=== PATIENT | male | born 1950 | race Caucasian/White ===

== ENCOUNTER 2023-07-22 20:07 | Inpatient (IN) | payer OTHER ==
[2023-07-22 21:54] LABS: BASO % 0.2 % (0-2.0); EOS % 0.1 % (0-4.5); HEMATOCRIT 47.5 % (35.4-49); LYMPH % 12.7 % (8-40); MCH 30.4 pg (25.7-33.7); MCHC 33.8 g/dl (32.0-35.9); MEAN CELL VOLUME 89.9 fl (80-96); MEAN PLT VOLUME 6.9 fl (7.5-11.1); MONO % 18.7 % (3.8-10.2); NEUT % 68.3 % (42.8-82.8); PLATELET COUNT 138 10^3/uL (134-434); RBC 5.29 M/mm3 (4.00-5.60); RDW 13.9 % (11.9-15.9); WHITE BLOOD COUNT 7.9 K/mm3 (4.0-10.0)
[2023-07-22 22:06] LABS: ACTIVATED PTT 29.2 SECONDS (25.2-36.5); INR 1.12 (0.83-1.09)
[2023-07-22] MEDS ORDERED: SODIUM CHLORIDE 0.9% 500 ML INFUS.BAG IV ONE (23:03)
[2023-07-22] MEDS ORDERED: ASPIRIN 81 MG CHEWABLE TABLETS PO ONE (23:30)
[2023-07-22 23:38] LABS: POTASSIUM 4.5 mmol/L (3.5-5.1)
[2023-07-22 23:40] LABS: ALBUMIN 3.7 g/dl (3.4-5.0); BLOOD UREA NITROGEN 12.5 mg/dL (7-18); CALCIUM 8.8 mg/dL (8.5-10.1); MAGNESIUM 2.1 mg/dL (1.8-2.4)
[2023-07-22 23:43] LABS: CREATININE 1.3 mg/dL (0.55-1.3)
[2023-07-22 23:45] LABS: BILIRUBIN,TOTAL 0.9 mg/dL (0.2-1); TOT PROT 7.7 g/dl (6.4-8.2)
[2023-07-22 23:49] LABS: N-TERMINAL BNP 2867.2 pg/ml (5-125)
[2023-07-22] MEDS ORDERED: ASPIRIN 81 MG CHEWABLE TABLETS ONE (23:51)
[2023-07-22] MEDS ORDERED: ACETAMINOPHEN INJECTION 100 ML IVPB ONE (23:51)
[2023-07-22] MEDS ORDERED: ACETAMINOPHEN 1000 MG/100 ML BAG IVPB ONE (23:51)
[2023-07-23 00:06] LABS: EPI CELLS 1 /uL (0-25.1); HYALINE CASTS 2 /uL (0-3.1); URINE APPEARANCE CLEAR; URINE BACTERIA 50 /uL (0-1359); URINE BILIRUBIN NEGATIVE (NEGATIVE); URINE COLOR YELLOW; URINE GLUCOSE (UA) NEGATIVE (NEGATIVE); URINE KETONE NEGATIVE (NEGATIVE); URINE LEUK ESTERASE 2+ (NEGATIVE); URINE NITRITE NEGATIVE (NEGATIVE); URINE PROTEIN 1+ (NEGATIVE); URINE RBC 27 /uL (0-23.9); URINE WBC 564 /uL (0-25.8)
[2023-07-23] MEDS ORDERED: CEFTRIAXONE 1 GM in DEXTROSE 5%-WATER - 100 ML IVPB ONE (00:29)
[2023-07-23] MEDS ORDERED: CEFTRIAXONE 1 GM/50 ML BAG ONE (01:03)
[2023-07-23] MEDS: CEFTRIAXONE 1 GM in DEXTROSE 5%-WATER - 50 ML IVPB SCH ×2 (02:00→09:15)
[2023-07-23] MEDS ORDERED: metoPROLOL SUCCINATE 25 MG TAB.SR.24H (FP) PO ONE ×2 (02:28→08:49)
[2023-07-23] MEDS ORDERED: LOSARTAN POTASSIUM 50 MG TABLET ONE (02:28)
[2023-07-23] MEDS: METOPROLOL TARTRATE 25 MG TABLET (FP) PO SCH ×2 (02:30→09:15)
[2023-07-23] MEDS: LOSARTAN POTASSIUM 25 MG TABLET PO SCH ×2 (03:09→09:15)
[2023-07-23 04:43] VITALS: BMI 28.7
[2023-07-23 08:04] LABS: BASO % 0.4 % (0-2.0); EOS % 0.1 % (0-4.5); HEMATOCRIT 47.1 % (35.4-49); HEMOGLOBIN 16.1 GM/dL (11.7-16.9); LYMPH % 14.4 % (8-40); MCH 31.3 pg (25.7-33.7); MCHC 34.1 g/dl (32.0-35.9); MEAN CELL VOLUME 91.6 fl (80-96); MEAN PLT VOLUME 7.7 fl (7.5-11.1); MONO % 13.1 % (3.8-10.2); PLATELET COUNT 122 10^3/uL (134-434); RBC 5.15 M/mm3 (4.00-5.60); WHITE BLOOD COUNT 6.2 K/mm3 (4.0-10.0)
[2023-07-23 08:07] LABS: POTASSIUM 3.9 mmol/L (3.5-5.1)
[2023-07-23 08:13] LABS: ALBUMIN 3.6 g/dl (3.4-5.0); BLOOD UREA NITROGEN 12.2 mg/dL (7-18); MAGNESIUM 1.9 mg/dL (1.8-2.4)
[2023-07-23 08:16] LABS: CREATININE 1.2 mg/dL (0.55-1.3); PHOSPHOROUS 3.4 mg/dL (2.5-4.9)
[2023-07-23 08:17] LABS: TOT PROT 7.6 g/dl (6.4-8.2)
[2023-07-23] MEDS: APIXABAN 5 MG TABLET PO SCH ×2 (09:15→21:41)
[2023-07-23] MEDS ORDERED: POTASSIUM CITRATE/CITRIC ACID 2 MEQ/ML ML PO ONE (11:48)
[2023-07-23] MEDS ORDERED: MAGNESIUM 2GM/50ML STERILE WATER IVPB IVPB ONE (12:00)
[2023-07-23] MEDS: ACETAMINOPHEN 325 MG TABLET (FP) PO PRN (20:33)
[2023-07-23] MEDS ORDERED: metoPROLOL SUCCINATE 25 MG TAB.SR.24H (FP) PO SCH (22:00)
[2023-07-24] MEDS ORDERED: metoPROLOL SUCCINATE 25 MG TAB.SR.24H (FP) PO ONE (08:50)
[2023-07-24 08:52] LABS: HEMATOCRIT 47.9 % (35.4-49); HEMOGLOBIN 16.8 GM/dL (11.7-16.9); MCH 31.1 pg (25.7-33.7); MEAN CELL VOLUME 88.9 fl (80-96); MEAN PLT VOLUME 7.7 fl (7.5-11.1); PLATELET COUNT 133 10^3/uL (134-434); RBC 5.39 M/mm3 (4.00-5.60); WHITE BLOOD COUNT 8.2 K/mm3 (4.0-10.0)
[2023-07-24 08:56] LABS: POTASSIUM 3.6 mmol/L (3.5-5.1)
[2023-07-24] MEDS: LOSARTAN POTASSIUM 25 MG TABLET PO SCH (09:01)
[2023-07-24] MEDS: CEFTRIAXONE 1 GM in DEXTROSE 5%-WATER - 50 ML IVPB SCH (09:01)
[2023-07-24] MEDS: APIXABAN 5 MG TABLET PO SCH ×2 (09:01→21:48)
[2023-07-24 09:10] LABS: CALCIUM 8.8 mg/dL (8.5-10.1)
[2023-07-24 09:11] LABS: ALBUMIN 3.8 g/dl (3.4-5.0); BLOOD UREA NITROGEN 12.9 mg/dL (7-18); MAGNESIUM 2.1 mg/dL (1.8-2.4)
[2023-07-24 09:14] LABS: CREATININE 1.1 mg/dL (0.55-1.3); PHOSPHOROUS 3.2 mg/dL (2.5-4.9)
[2023-07-24 09:15] LABS: BILIRUBIN,TOTAL 0.7 mg/dL (0.2-1); TOT PROT 7.7 g/dl (6.4-8.2)
[2023-07-24] MEDS ORDERED: FUROSEMIDE 40 MG/4 ML INJECTABLE VIAL IVPUSH ONE (10:00)
[2023-07-24] MEDS: LACTOBACILLUS ACIDOPHILUS 1 TABLET PO SCH (13:39)
[2023-07-24] MEDS: ACETAMINOPHEN 325 MG TABLET (FP) PO PRN (16:31)
[2023-07-24] MEDS ORDERED: MAG HYDROX/AL HYDROX/SIMETH 30 ML UNIT-DOSE CUP PO PRN (23:56)
[2023-07-25] MEDS: ACETAMINOPHEN 325 MG TABLET (FP) PO PRN ×2 (05:46→19:04)
[2023-07-25] MEDS: LACTOBACILLUS ACIDOPHILUS 1 TABLET PO SCH ×2 (09:01→22:05)
[2023-07-25] MEDS: APIXABAN 5 MG TABLET PO SCH ×2 (09:01→22:50)
[2023-07-25] MEDS: CEFTRIAXONE 1 GM in DEXTROSE 5%-WATER - 50 ML IVPB SCH (09:01)
[2023-07-25] MEDS: LOSARTAN POTASSIUM 25 MG TABLET PO SCH (09:01)
[2023-07-25 09:20] LABS: POTASSIUM 3.6 mmol/L (3.5-5.1)
[2023-07-25 09:30] LABS: HEMATOCRIT 48.8 % (35.4-49); HEMOGLOBIN 16.9 GM/dL (11.7-16.9); MCH 30.9 pg (25.7-33.7); MCHC 34.7 g/dl (32.0-35.9); MEAN CELL VOLUME 89.1 fl (80-96); MEAN PLT VOLUME 8.4 fl (7.5-11.1); PLATELET COUNT 147 10^3/uL (134-434); RBC 5.47 M/mm3 (4.00-5.60); RDW 13.8 % (11.9-15.9); WHITE BLOOD COUNT 8.1 K/mm3 (4.0-10.0)
[2023-07-25 09:53] LABS: ALBUMIN 3.6 g/dl (3.4-5.0)
[2023-07-25 09:54] LABS: BLOOD UREA NITROGEN 15.5 mg/dL (7-18)
[2023-07-25 09:55] LABS: CALCIUM 8.8 mg/dL (8.5-10.1); MAGNESIUM 2.1 mg/dL (1.8-2.4)
[2023-07-25 09:58] LABS: PHOSPHOROUS 2.9 mg/dL (2.5-4.9)
[2023-07-25 09:59] LABS: BILIRUBIN,TOTAL 0.7 mg/dL (0.2-1)
[2023-07-25 10:00] LABS: TOT PROT 7.6 g/dl (6.4-8.2)
[2023-07-25] MEDS: DOCUSATE SODIUM 100 MG CAPSULE (FP) PO SCH (22:05)
[2023-07-25] MEDS: POLYETHYLENE GLYCOL (HEALTHYLAX) 3350 17 GM PACKET PO SCH (22:05)
[2023-07-26] MEDS: ACETAMINOPHEN 325 MG TABLET (FP) PO PRN (02:18)
[2023-07-26] MEDS: POLYETHYLENE GLYCOL (HEALTHYLAX) 3350 17 GM PACKET PO SCH ×3 (06:35→21:32)
[2023-07-26 08:38] LABS: POTASSIUM 3.5 mmol/L (3.5-5.1)
[2023-07-26 08:45] LABS: CALCIUM 9.1 mg/dL (8.5-10.1)
[2023-07-26 08:46] LABS: ALBUMIN 3.6 g/dl (3.4-5.0); MAGNESIUM 2.1 mg/dL (1.8-2.4); PHOSPHOROUS 4.1 mg/dL (2.5-4.9)
[2023-07-26 08:48] LABS: BILIRUBIN,TOTAL 0.8 mg/dL (0.2-1); TOT PROT 7.8 g/dl (6.4-8.2)
[2023-07-26 08:49] LABS: CREATININE 1.1 mg/dL (0.55-1.3)
[2023-07-26 08:51] LABS: BLOOD UREA NITROGEN 19.4 mg/dL (7-18)
[2023-07-26] MEDS: CEFTRIAXONE 1 GM in DEXTROSE 5%-WATER - 50 ML IVPB SCH ×2 (12:08)
[2023-07-26] MEDS: FAMOTIDINE 20 MG TABLET PO SCH (12:08)
[2023-07-26] MEDS: LOSARTAN POTASSIUM 25 MG TABLET PO SCH (12:08)
[2023-07-26] MEDS: APIXABAN 5 MG TABLET PO SCH ×2 (12:08→21:32)
[2023-07-26 18:35] LABS: EPI CELLS 7 /uL (0-25.1); HYALINE CASTS 3 /uL (0-3.1); PH,URINE 5.5 (5.0-8.0); URINE APPEARANCE CLEAR; URINE BACTERIA 1 /uL (0-1359); URINE BILIRUBIN NEGATIVE (NEGATIVE); URINE COLOR DK YELLOW; URINE GLUCOSE (UA) NEGATIVE (NEGATIVE); URINE KETONE NEGATIVE (NEGATIVE); URINE LEUK ESTERASE NEGATIVE (NEGATIVE); URINE NITRITE NEGATIVE (NEGATIVE); URINE PROTEIN 2+ (NEGATIVE); URINE RBC 11 /uL (0-23.9); URINE UROBILINOGEN 0.2 mg/dL (0.2-1.0); URINE WBC 14 /uL (0-25.8)
[2023-07-26] MEDS: DOCUSATE SODIUM 100 MG CAPSULE (FP) PO SCH (21:28)
[2023-07-26] MEDS: LACTOBACILLUS ACIDOPHILUS 1 TABLET PO SCH (21:30)
[2023-07-27] MEDS: POLYETHYLENE GLYCOL (HEALTHYLAX) 3350 17 GM PACKET PO SCH (05:59)
[2023-07-27 08:14] LABS: HEMATOCRIT 48.4 % (35.4-49); HEMOGLOBIN 17.1 GM/dL (11.7-16.9); MCH 30.8 pg (25.7-33.7); MCHC 35.3 g/dl (32.0-35.9); MEAN CELL VOLUME 87.4 fl (80-96); MEAN PLT VOLUME 8.2 fl (7.5-11.1); PLATELET COUNT 145 10^3/uL (134-434); RBC 5.54 M/mm3 (4.00-5.60); RDW 13.8 % (11.9-15.9); WHITE BLOOD COUNT 9.4 K/mm3 (4.0-10.0)
[2023-07-27 08:26] LABS: POTASSIUM 3.5 mmol/L (3.5-5.1)
[2023-07-27 08:39] LABS: ALBUMIN 3.4 g/dl (3.4-5.0); BLOOD UREA NITROGEN 20.5 mg/dL (7-18); CALCIUM 8.7 mg/dL (8.5-10.1)
[2023-07-27 08:40] LABS: BILIRUBIN,TOTAL 0.6 mg/dL (0.2-1); MAGNESIUM 2.2 mg/dL (1.8-2.4)
[2023-07-27 08:41] LABS: PHOSPHOROUS 2.6 mg/dL (2.5-4.9)
[2023-07-27 08:42] LABS: CREATININE 1.2 mg/dL (0.55-1.3)
[2023-07-27] MEDS: APIXABAN 5 MG TABLET PO SCH (09:36)
[2023-07-27] MEDS: LOSARTAN POTASSIUM 25 MG TABLET PO SCH (09:36)
[2023-07-27] MEDS: CEFTRIAXONE 1 GM in DEXTROSE 5%-WATER - 50 ML IVPB SCH (09:36)
[2023-07-27] MEDS: FAMOTIDINE 20 MG TABLET PO SCH (09:36)
[2023-07-27 14:21] VITALS: BP 136/93; PULSE 97; RESP 24; TEMP 98.8
== END 2023-07-27 14:42 | disposition home or self-care (01) | DRG 690 ==
LOC: JER 20:07 → JERBED 07-23 00:04 → OBSVTOIN 07-23 02:20 → J4W 07-23 04:16
PROVIDERS: ADMIT Internal Medicine; ATTEND Internal Medicine
DX: N39.0 Urinary tract infection, site not specified (principal); I45.2 Bifascicular block; I48.91 Unspecified atrial fibrillation; I10 Essential (primary) hypertension; I35.0 Nonrheumatic aortic (valve) stenosis; R19.7 Diarrhea, unspecified; R91.1 Solitary pulmonary nodule; K59.00 Constipation, unspecified
CPT/HCPCS: 0241U-QW; 36415; 71045-TC-FY; 74018-TC-FY; 74176-TC; 80053; 81003; 82550; 82962; 83036; 83735; 83880; 84100; 84439; 84443; 84484; 85025; 85027; 85610; 85730; 86850; 86900; 86901; 87040; 87045; 87046; 87086; 87324; 87449; 87635; 93005; 93010; 93306-TC; 94010; 97116-GP; 97162-GP; 99285-25; G0378

== ENCOUNTER 2024-03-27 09:40 | Inpatient (IN) | payer OTHER ==
[2024-03-27] MEDS ORDERED: ACETAMINOPHEN INJECTION 100 ML IVPB ONE (10:10)
[2024-03-27] MEDS ORDERED: MAG HYDROX/AL HYDROX/SIMETH 30 ML UNIT-DOSE CUP ONE (10:11)
[2024-03-27] MEDS ORDERED: FAMOTIDINE 20 MG/50 ML IVPB 20 MG/50 ML MG IVPB ONE (10:11)
[2024-03-27] MEDS ORDERED: ONDANSETRON 4 MG/2 ML VIAL ONE (10:11)
[2024-03-27] MEDS: ACETAMINOPHEN 1000 MG/100 ML BAG IVPB ONE (10:20)
[2024-03-27] MEDS: ONDANSETRON 4 MG/2 ML VIAL IVPUSH ONE (10:20)
[2024-03-27] MEDS: SODIUM CHLORIDE 1,000 ML IV STA (10:20)
[2024-03-27] MEDS: FAMOTIDINE 20 MG/50 ML IVPB 20 MG/50 ML MG IVPB ONE (10:20)
[2024-03-27] MEDS: MAG HYDROX/AL HYDROX/SIMETH 30 ML UNIT-DOSE CUP PO ONE (10:20)
[2024-03-27 10:52] LABS: BASO % 0.3 % (0-2.0); HEMATOCRIT 41.9 % (35.4-49); LYMPH % 7.2 % (8-40); MCH 31.1 pg (25.7-33.7); MCHC 33.5 g/dl (32.0-35.9); MEAN PLT VOLUME 7.7 fl (7.5-11.1); MONO % 5.5 % (3.8-10.2); PLATELET COUNT 182 10^3/uL (134-434); RDW 13.8 % (11.9-15.9); WHITE BLOOD COUNT 12.8 K/mm3 (4.0-10.0)
[2024-03-27 11:01] LABS: INR 1.16 (0.83-1.09); POTASSIUM 4.3 mmol/L (3.5-5.1)
[2024-03-27 11:03] LABS: ALBUMIN 3.6 g/dl (3.4-5.0); CALCIUM 9.1 mg/dL (8.5-10.1); MAGNESIUM 1.9 mg/dL (1.8-2.4)
[2024-03-27 11:04] LABS: ACTIVATED PTT 28.5 SECONDS (25.2-36.5)
[2024-03-27 11:05] LABS: BLOOD UREA NITROGEN 14.9 mg/dL (7-18)
[2024-03-27 11:06] LABS: CREATININE 1.7 mg/dL (0.55-1.3)
[2024-03-27 11:08] LABS: BILIRUBIN,TOTAL 0.9 mg/dL (0.2-1); TOT PROT 7.5 g/dl (6.4-8.2)
[2024-03-27] MEDS ORDERED: morphine SULFATE 4 MG/ML VIAL ONE (12:26)
[2024-03-27] MEDS: morphine CARPU-JECT 4 MG/1 ML DISP.SYRIN IVPUSH ONE (12:36)
[2024-03-27] MEDS ORDERED: HEPARIN NA (PORCINE) 5,000 UNITS/ML 1ML VIAL ONE (15:05)
[2024-03-27] MEDS ORDERED: HEPARIN NA (PORCINE) 5,000 UNITS/ML 1ML VIAL IVPUSH PRN (15:11)
[2024-03-27] MEDS: HEPARIN NA (PORCINE) 5,000 UNITS/ML 1ML VIAL IVPUSH PRN (15:15)
[2024-03-27] MEDS ORDERED: HEPARIN INFUSION - 25,000 UNITS/500 ML INFUS.BAG IVPB SCH (15:15)
[2024-03-27] MEDS: HEPARIN INFUSION - 25,000 UNITS/500 ML INFUS.BAG IVPB SCH ×2 (15:22→16:31)
[2024-03-27] MEDS: LACTATED RINGERS SOLUTION 1,000 ML/1,000 ML INFUS.BAG IV SCH (16:10)
[2024-03-27] MEDS ORDERED: CARVEDILOL 6.25 MG TABLET (FP) PO SCH (22:00)
[2024-03-27] MEDS: CARVEDILOL 6.25 MG TABLET (FP) PO SCH (22:40)
[2024-03-28 08:07] LABS: BASO % 0.3 % (0-2.0); HEMATOCRIT 39.7 % (35.4-49); HEMOGLOBIN 13.4 GM/dL (11.7-16.9); LYMPH % 11.5 % (8-40); MCH 31.4 pg (25.7-33.7); MCHC 33.9 g/dl (32.0-35.9); MEAN CELL VOLUME 92.6 fl (80-96); MEAN PLT VOLUME 7.5 fl (7.5-11.1); MONO % 13.1 % (3.8-10.2); NEUT % 75.1 % (42.8-82.8); PLATELET COUNT 175 10^3/uL (134-434); RBC 4.28 M/mm3 (4.00-5.60); WHITE BLOOD COUNT 13.5 K/mm3 (4.0-10.0)
[2024-03-28 08:12] LABS: POTASSIUM 3.9 mmol/L (3.5-5.1)
[2024-03-28 08:24] LABS: CALCIUM 9.2 mg/dL (8.5-10.1)
[2024-03-28 08:25] LABS: BLOOD UREA NITROGEN 14.8 mg/dL (7-18)
[2024-03-28 08:28] LABS: CREATININE 1.7 mg/dL (0.55-1.3)
[2024-03-28] MEDS: HEPARIN NA (PORCINE) 5,000 UNITS/ML 1ML VIAL IVPUSH PRN (08:28)
[2024-03-28] MEDS: ACETAMINOPHEN 500 MG TABLET (FP) PO PRN (08:29)
[2024-03-28] MEDS: PNEUMOC 20-VAL CONJ-DIP CRM/PF 0.5 ML SYRINGE IM ONE (09:30)
[2024-03-28 13:27] LABS: EPI CELLS 5 /uL (0-25.1); HYALINE CASTS 0 /uL (0-3.1); URINE APPEARANCE CLOUDY; URINE BACTERIA 59 /uL (0-1359); URINE BILIRUBIN NEGATIVE (NEGATIVE); URINE COLOR YELLOW; URINE GLUCOSE (UA) NEGATIVE (NEGATIVE); URINE KETONE NEGATIVE (NEGATIVE); URINE LEUK ESTERASE 2+ (NEGATIVE); URINE NITRITE NEGATIVE (NEGATIVE); URINE PROTEIN 2+ (NEGATIVE); URINE RBC 20 /uL (0-23.9); URINE WBC 1140 /uL (0-25.8)
[2024-03-28] MEDS: CEFTRIAXONE 1 GM in DEXTROSE 5%-WATER - 50 ML IVPB SCH (22:08)
[2024-03-29 08:03] LABS: BASO % 0.2 % (0-2.0); HEMATOCRIT 40.2 % (35.4-49); HEMOGLOBIN 13.7 GM/dL (11.7-16.9); LYMPH % 8.9 % (8-40); MCH 31.4 pg (25.7-33.7); MCHC 34.2 g/dl (32.0-35.9); MEAN CELL VOLUME 91.8 fl (80-96); MONO % 13.5 % (3.8-10.2); NEUT % 77.4 % (42.8-82.8); PLATELET COUNT 166 10^3/uL (134-434); RBC 4.38 M/mm3 (4.00-5.60); RDW 13.7 % (11.9-15.9); WHITE BLOOD COUNT 18.8 K/mm3 (4.0-10.0)
[2024-03-29 08:16] LABS: POTASSIUM 3.4 mmol/L (3.5-5.1)
[2024-03-29 08:27] LABS: CALCIUM 8.7 mg/dL (8.5-10.1)
[2024-03-29 08:28] LABS: ALBUMIN 3.2 g/dl (3.4-5.0); BLOOD UREA NITROGEN 17.4 mg/dL (7-18)
[2024-03-29 08:31] LABS: CREATININE 1.3 mg/dL (0.55-1.3)
[2024-03-29 08:33] LABS: BILIRUBIN,TOTAL 1.4 mg/dL (0.2-1); TOT PROT 6.8 g/dl (6.4-8.2)
[2024-03-29] MEDS: amLODIPine BESYLATE 5 MG TABLET (FP) PO SCH (09:02)
[2024-03-29 09:04] LABS: MAGNESIUM 1.9 mg/dL (1.8-2.4)
[2024-03-29 09:08] LABS: PHOSPHOROUS 2.5 mg/dL (2.5-4.9)
[2024-03-29] MEDS: POTASSIUM CHLORIDE TABS 20 MEQ TABLET.ER (FP) PO SCH (11:13)
[2024-03-29] MEDS: CARVEDILOL 6.25 MG TABLET (FP) PO ONE (11:59)
[2024-03-29] MEDS: SODIUM CHLORIDE 0.45% 1,000 ML IV SCH (16:50)
[2024-03-29] MEDS: ACETAMINOPHEN 325 MG TABLET (FP) PO ONE (20:00)
[2024-03-29] MEDS: CARVEDILOL 12.5 MG TABLET (FP) PO SCH (21:20)
[2024-03-30 08:35] LABS: BASO % 0.2 % (0-2.0); EOS % 0.1 % (0-4.5); HEMATOCRIT 41.2 % (35.4-49); HEMOGLOBIN 14.4 GM/dL (11.7-16.9); MCH 31.8 pg (25.7-33.7); MCHC 34.9 g/dl (32.0-35.9); MEAN PLT VOLUME 7.5 fl (7.5-11.1); MONO % 11.4 % (3.8-10.2); NEUT % 80.3 % (42.8-82.8); PLATELET COUNT 179 10^3/uL (134-434); RBC 4.53 M/mm3 (4.00-5.60); RDW 13.7 % (11.9-15.9); WHITE BLOOD COUNT 16.5 K/mm3 (4.0-10.0)
[2024-03-30 08:54] LABS: POTASSIUM 3.5 mmol/L (3.5-5.1)
[2024-03-30 09:02] LABS: ALBUMIN 3.2 g/dl (3.4-5.0); BLOOD UREA NITROGEN 19.4 mg/dL (7-18); CALCIUM 9.2 mg/dL (8.5-10.1); MAGNESIUM 2.1 mg/dL (1.8-2.4)
[2024-03-30 09:06] LABS: CREATININE 1.3 mg/dL (0.55-1.3)
[2024-03-30 09:07] LABS: BILIRUBIN,TOTAL 0.8 mg/dL (0.2-1); TOT PROT 7.1 g/dl (6.4-8.2)
[2024-03-30] MEDS: ACETAMINOPHEN 325 MG TABLET (FP) PO PRN (09:07)
[2024-03-30] MEDS: NAPH,MB-DB/K PH,MBDB POWDER PACKET PO ONE (09:23)
[2024-03-30] MEDS: LOPERAMIDE HCL 2 MG CAPSULE PO ONE (12:57)
[2024-03-30] MEDS: LACTOBACILLUS ACIDOPHILUS 1 TABLET PO SCH (21:47)
[2024-03-31 08:07] LABS: HEMATOCRIT 40.9 % (35.4-49); HEMOGLOBIN 13.8 GM/dL (11.7-16.9); MCHC 33.8 g/dl (32.0-35.9); MEAN CELL VOLUME 91.5 fl (80-96); MEAN PLT VOLUME 8.1 fl (7.5-11.1); PLATELET COUNT 188 10^3/uL (134-434); RBC 4.47 M/mm3 (4.00-5.60); RDW 13.5 % (11.9-15.9); WHITE BLOOD COUNT 11.6 K/mm3 (4.0-10.0)
[2024-03-31 08:30] LABS: INR 1.05 (0.83-1.09); PROTHROMBIN TIME (PATIENT) 11.8 SEC (9.7-13.0)
[2024-03-31 08:43] LABS: CALCIUM 9.1 mg/dL (8.5-10.1)
[2024-03-31 08:44] LABS: BLOOD UREA NITROGEN 19.1 mg/dL (7-18)
[2024-03-31 08:46] LABS: MAGNESIUM 2.2 mg/dL (1.8-2.4)
[2024-03-31 08:47] LABS: CREATININE 1.2 mg/dL (0.55-1.3)
[2024-03-31 09:08] LABS: POTASSIUM 3.5 mmol/L (3.5-5.1)
[2024-03-31] MEDS: RIVAROXABAN 20 MG TABLET PO SCH (13:57)
[2024-03-31] MEDS: NAPH,MB-DB/K PH,MBDB POWDER PACKET PO SCH (13:58)
[2024-03-31 14:04] VITALS: BP 140/90; PULSE 76; RESP 18; TEMP 98.6
== END 2024-03-31 14:24 | disposition home or self-care (01) | DRG 699 ==
LOC: JER 09:40 → JERBED 15:34 → OBSVTOIN 15:36 → J4W 19:34
PROVIDERS: ADMIT Internal Medicine; ATTEND Internal Medicine
DX: N28.0 Ischemia and infarction of kidney (principal); I24.89 Other forms of acute ischemic heart disease; N39.0 Urinary tract infection, site not specified; N17.9 Acute kidney failure, unspecified; I10 Essential (primary) hypertension; I48.91 Unspecified atrial fibrillation; R19.7 Diarrhea, unspecified
CPT/HCPCS: 0241U-QW; 36415; 74177-TC; 76775-TC; 80048; 80053; 81003; 82272; 83605; 83690; 83735; 84100; 84484; 85025; 85027; 85610; 85730; 86850; 86900; 86901; 87040; 87086; 87324; 87449; 90677; 93005; 93010; 93306-TC; 99285-25; G0009; G0378; J0131; J1644; Q9967